=== PATIENT | male | born 1995 | race Caucasian/White ===

== ENCOUNTER 2022-01-08 10:27 | Emergency (ER) | payer OTHER ==
[~2022-01-08] VITALS: Ht 175.3 cm; Wt 87.3 kg
[2022-01-08 10:42] VITALS: TEMP 98.6
[2022-01-08 10:50] LABS: COLLECTION METHOD CLEAN CATCH
[2022-01-08 11:04] LABS: BASO % 0.2 % (0.0-2.0); EOS # 0.1 K/mm3 (0.0-0.7); EOS % 0.5 % (0.0-4.0); GRAN # 10.3 K/mm3 (1.4-6.5); GRAN % 83.1 % (42.2-75.2); HEMATOCRIT 44.2 % (42.0-52.0); HEMOGLOBIN 14.9 g/dl (13.5-18.0); LYMPH # 1.3 K/mm3 (1.2-3.4); LYMPH % 10.5 % (20.0-51.0); MEAN CELL VOLUME 84 fl (80.0-100.0); MEAN CORPUSCULAR HEMOGLOBIN 28 pg (27-31); MEAN CORPUSCULAR HGB CONC 34 g/dl (33.0-37.0); MEAN PLATELET VOLUME 10.3 fl (7.4-10.4); MONO # 0.7 K/mm3 (0.1-0.6); MONO % 5.5 % (1.7-9.3); PLATELET COUNT 291 K/mm3 (130-400); RED BLOOD COUNT 5.24 M/mm3 (4.20-5.60); REDCELL DISTRIBUTION WIDTH-CV 12.3 % (11.5-14.5)
[2022-01-08 11:09] LABS: URINE APPEARANCE Clear (CLEAR/HAZY); URINE COLOR Yellow (YELLOW)
[2022-01-08 11:10] LABS: MUCOUS Present (NOT PRESENT); PH 5.5 (5.0-8.5); SQUAMOUS EPITHELIAL 0-2 /hpf (0-10); URINE BACTERIA None Seen /hpf (NONE SEEN); URINE BLOOD TRACE-INTACT (NEGATIVE); URINE GLUCOSE Negative (NEGATIVE); URINE KETONE Negative (NEGATIVE); URINE NITRATE Negative (NEGATIVE); URINE PROTEIN(semi-quant) Negative (NEGATIVE); URINE RBC 0-2 /hpf (0-2); URINE UROBILINOGEN 0.2 E.U/dL (0.2-1.0)
[2022-01-08 11:21] LABS: ALBUMIN 4.2 gm/dL (3.5-5.0); BILIRUBIN,TOTAL 0.9 mg/dL (0.2-1.2); CALCIUM 9.5 mg/dL (8.4-10.2); CREATININE, serum 1.1 mg/dL (0.72-1.25); POTASSIUM 3.9 mmol/L (3.5-4.5); TOTAL PROTEIN 7.9 gm/dL (6.2-8.1)
[2022-01-08] MEDS ORDERED: DULCOLAX STOOL100 MG PO (13:06)
[2022-01-08] MEDS ORDERED: PERCOCET 325 MG1 TA2 PO (13:06)
[2022-01-08] MEDS ORDERED: AMOXICILLIN 8751 TAB PO (13:06)
[2022-01-08] MEDS ORDERED: NAPROSYN500 MG PO (13:06)
[2022-01-08 13:19] VITALS: BP 137/73; PULSE 74
[2022-01-09] MEDS ORDERED: PERCOCET 325 MG1 TA2 PO (08:26)
== END 2022-01-08 13:23 | disposition home or self-care (01) ==
LOC: COL.ER 10:27
PROVIDERS: Emergency Medicine
DX: K57.12 Diverticulitis of small intestine without perforation or abscess without bleeding (principal); K59.00 Constipation, unspecified; Z88.2 Allergy status to sulfonamides
CPT/HCPCS: J1885; J2765; J7030; Q9967

== ENCOUNTER 2024-01-05 13:42 | Emergency (ER) | payer OTHER ==
[~2024-01-05] VITALS: Ht 175.3 cm; Wt 84.5 kg
[~2024-01-05 13:42] MED LIST: AMOXICILLIN 8751 TAB PO; DULCOLAX STOOL100 MG PO; NAPROSYN500 MG PO; PERCOCET 325 MG1 TA2 PO; TORADOL 10MG TA10 MG PO
[2024-01-05 13:50] VITALS: TEMP 98.3
[2024-01-05] MEDS ORDERED: PREDNISONE50 MG PO (14:10)
[2024-01-05] MEDS ORDERED: FLEXERIL 1010 MG/TAB PO (14:10)
[2024-01-05 14:17] VITALS: BP 138/80; PULSE 94
== END 2024-01-05 14:21 | disposition home or self-care (01) ==
LOC: COL.ER 13:42
DX: M54.50 Low back pain, unspecified (principal); Z87.891 Personal history of nicotine dependence